=== PATIENT | male | born 1975 | race Caucasian/White ===

== ENCOUNTER 2018-09-22 18:56 | Emergency (ER) | payer BC ==
--- NOTE | 2018-09-22 20:25 | EDM.PDOCBH ---
ED HPI GENERAL MEDICAL PROBLEM - General Chief Complaint: Behavioral/Psych Stated Complaint: ANXIETY ATTACK Time Seen by Provider: 09/22/18 19:10 Source of Information: Reports: Patient History Limitations: Reports: No Limitations - History of Present Illness INITIAL COMMENTS - FREE TEXT/NARRATIVE: 43 y.o.w.m with a H/O anxiety, an employee at [employer] walked to the ed because of severe anxiety. Pt stated, he is so anxious and can not cont working. The main issue is his sister, who lives with him. His sister sent him all day texts with "nasty messages" which made him anxious angary and nervous. His sister wants more money from him, which he refused to give her, after which his sister sent him more messages, which made him more upset. Pt denies any physical issues, no N/V/D, no dizziness or any other acute medical issues. Pt has Ativan 1 mg tablets at home. BP 141/101 Pulse 107 Temp 37.4 RR 21 Pulse ox 100% on RA. Onset Date: 09/22/18 Onset Time: 15:00 Duration: Hour(s): Location: Reports: Generalized Severity: Moderate Improves with: Reports: Medication Worsens with: Reports: Other (being with hsi sister. ) Associated Symptoms: Reports: Other (anxiety) - Related Data Allergies Allergy/AdvReac Type Severity Reaction Status Date / Time seasonal Allergy Sneezing Uncoded 09/22/18 19:11 Home Meds: Home Meds LORazepam [Ativan] 1 mg PO DAILY PRN 09/22/18 [History] Loratadine [Claritin] 10 mg PO DAILY 09/22/18 [History] Mirtazapine [Remeron] 15 mg PO BEDTIME 09/22/18 [History] buPROPion HCl [Wellbutrin Xl] 300 mg PO DAILY 09/22/18 [History] Past Medical History Psychiatric History: Reports: Anxiety, Panic Attack - Past Surgical History Musculoskeletal Surgical History: Reports: Shoulder Surgery Social & Family History - Family History Family Medical History: Noncontributory - Tobacco Use Smoking Status *Q: Current Every Day Smoker Years of Tobacco use: 1 Packs/Tins Daily: 0.5 - Caffeine Use Caffeine Use: Reports: Coffee, Soda - Recreational Drug Use Recreational Drug Use: No ED ROS GENERAL - Review of Systems Review Of Systems: See Below Constitutional: Reports: No Symptoms HEENT: Reports: No Symptoms Respiratory: Reports: No Symptoms Cardiovascular: Reports: No Symptoms Endocrine: Reports: No Symptoms GI/Abdominal: Reports: No Symptoms : Reports: No Symptoms Musculoskeletal: Reports: No Symptoms Skin: Reports: No Symptoms Neurological: Reports: No Symptoms Psychiatric: Reports: Anxiety Hematologic/Lymphatic: Reports: No Symptoms Immunologic: Reports: No Symptoms ED EXAM, BEHAVIORAL HEALTH - Physical Exam Exam: See Below Exam Limited By: No Limitations General Appearance: Alert, WD/WN, No Apparent Distress Eye Exam: Bilateral Eye: Normal Inspection Ears: Normal External Exam, Normal Canal Nose: Normal Inspection, Normal Mucosa, No Blood Throat/Mouth: Normal Lips, Normal Voice, No Airway Compromise Head: Atraumatic, Normocephalic Neck: Normal Inspection, Supple, Non-Tender, Full Range of Motion Respiratory/Chest: No Respiratory Distress, Lungs Clear, Normal Breath Sounds, Chest Non-Tender Cardiovascular: Normal Peripheral Pulses, Regular Rate, Rhythm, No Edema, No Gallop, No Murmur, No Rub GI/Abdominal: Normal Bowel Sounds, Soft, Non-Tender, No Organomegaly, No Abnormal Bruit, No Mass (Male) Exam: Deferred Rectal (Males) Exam: Deferred Back Exam: Normal Inspection, Full Range of Motion Extremities: Normal Inspection, Normal Range of Motion, Non-Tender, No Pedal Edema, Normal Capillary Refill Neurological: Alert, Normal Mood/Affect, CN II-XII Intact, Normal Cognition, No Motor/Sensory Deficits, Oriented x 3 Psychiatric: Alert, Depressed Mood, Agitated Skin Exam: Warm, Dry, Intact, Normal color, No rash COURSE, BEHAVIORAL HEALTH COMP - Course Vital Signs: Last Vital Signs Temp 37.4 C 09/22/18 19:10 Pulse 88 09/22/18 20:15 Resp 17 09/22/18 20:15 BP 122/79 09/22/18 20:15 Pulse Ox 96 09/22/18 20:15 43 y.o.w.m with a H/O anxiety, an employee at [employer] walked to the ed because of severe anxiety. Pt stated, he is so anxious and can not cont working. The main issue is his sister, who lives with him. His sister sent him all day texts with "nasty messages" which made him anxious angary and nervous. His sister wants more money from him, which he refused to give her, after which his sister sent him more messages, which made him more upset. Pt denies any physical issues, no N/V/D, no dizziness or any other acute medical issues. Pt has Ativan 1 mg tablets at home. BP 141/101 Pulse 107 Temp 37.4 RR 21 Pulse ox 100% on RA. PE: WNWD W M extremely anxious, which improved some while here in the ed. Imaging/Labs: Not indicated Impression: Anxiety Tx: None in the ed. Reexam: BP was 122/79 on D/C. Pt was doing better. 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 Plan: D/C with instructions. Departure - Departure Time of Disposition: 20:23 Disposition: Home, Self-Care 01 Condition: Good Clinical Impression: Anxiety - Discharge Information Instructions: Panic Attack, Living With Anxiety Referrals: Gerard Layne PA [Primary Care Provider] - Forms: ED Department Discharge, ED Return to Work/School Form Additional Instructions: please cont your meds, take at home 1 mg Ativan (from your own), please f/u with your PMD, come back if your symptoms get worse acutely.
== END 2018-09-22 20:30 | disposition home or self-care (01) ==
LOC: FB.ED 18:56
DX: F41.9 Anxiety disorder, unspecified (principal); F17.210 Nicotine dependence, cigarettes, uncomplicated; Z79.899 Other long term (current) drug therapy
CPT/HCPCS: 99283

== ENCOUNTER 2020-02-16 23:46 | Emergency (ER) | payer BC ==
[2020-02-16] MEDS ORDERED: Ketorolac 60 MG/2 ML SDV IM ONE (23:56)
--- NOTE | 2020-02-17 00:01 | EDM.PDOC ---
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[employer], lives alone, has a cat got home from work, taking a shower, fell getting out of shower, hit R mandible on handle bending it, landed on R wrist R handed not injured his R wrist before has had R shoulder surg x 2, says he is used to not having his RUE available has gotten ketorolac for kidney stones - Related Data Allergies Allergy/AdvReac Type Severity Reaction Status Date / Time seasonal Allergy Sneezing Uncoded 09/22/18 19:11 Home Meds: Home Meds LORazepam [Ativan] 1 mg PO DAILY PRN 09/22/18 [History] Loratadine [Claritin] 10 mg PO DAILY 09/22/18 [History] Mirtazapine [Remeron] 15 mg PO BEDTIME 09/22/18 [History] buPROPion HCL [Wellbutrin Xl] 300 mg PO DAILY 09/22/18 [History] Past Medical History Psychiatric History: Reports: Anxiety, Panic Attack - Past Surgical History Musculoskeletal Surgical History: Reports: Shoulder Surgery Social & Family History - Family History Family Medical History: Noncontributory - Caffeine Use Caffeine Use: Reports: Coffee, Soda ED ROS GENERAL - Review of Systems Review Of Systems: See Below Constitutional: Reports: No Symptoms HEENT: Reports: No Symptoms Respiratory: Reports: No Symptoms Cardiovascular: Reports: No Symptoms Endocrine: Reports: No Symptoms GI/Abdominal: Reports: No Symptoms : Reports: No Symptoms Musculoskeletal: Reports: Other (R wrist pain) Skin: Reports: No Symptoms Neurological: Reports: No Symptoms Psychiatric: Reports: No Symptoms Hematologic/Lymphatic: Reports: No Symptoms Immunologic: Reports: No Symptoms ED EXAM, GENERAL - Physical Exam Exam: See Below Exam Limited By: No Limitations General Appearance: Alert, WD/WN, No Apparent Distress Extremities: Other (R wrist with mild tender at distal radius and interosseous membrane, slight swell, no ecchymosis, carpal bones NT) Course - Orders/Labs/Meds Orders: Active Orders 24 hr Category Date Time Status Wrist Comp Min 3V Rt [CR] Stat Exams 02/16/20 23:56 Ordered Meds: Medications Discontinued Medications Generic Name Dose Route Start Last Admin Trade Name Travis PRN Reason Stop Dose Admin Ketorolac Tromethamine 60 mg 02/16/20 23:56 Toradol IM 02/16/20 23:57 ONETIME ONE - Re-Assessments/Exams Free Text/Narrative Re-Assessment/Exam: 02/17/20 00:56 XR R wrist neg on prelim ED read pt states he is on leave from work at present has soreness in his R thigh and back as well as R mandible from when he fell, says "nothing feels broke" Departure - Departure Time of Disposition: 00:54 Disposition: Home, Self-Care 01 Condition: Good Clinical Impression: Sprain of right wrist - Discharge Information *PRESCRIPTION DRUG MONITORING PROGRAM REVIEWED*: Not Applicable *COPY OF PRESCRIPTION DRUG MONITORING REPORT IN PATIENT DHRUV: Not Applicable Instructions: Wrist Sprain, Adult Referrals: Gerard Layne PA [Primary Care Provider] - Additional Instructions: Use wrist splint for the next 3 days when out of bed, longer if needed. Use ice for 10 minutes 4 times a day. Take ibuprofen 200 mg 4 tabs 3 times a day for 3 days, longer if needed. See your doctor in 5-7 days. - My Orders Last 24 Hours: My Active Orders 02/16/20 23:56 Wrist Comp Min 3V Rt [CR] Stat - Assessment/Plan Last 24 Hours: My Active Orders 02/16/20 23:56 Wrist Comp Min 3V Rt [CR] Stat
== END 2020-02-17 01:32 | disposition home or self-care (01) ==
LOC: FB.ED 23:46
DX: S63.501A Unspecified sprain of right wrist, initial encounter (principal); F41.9 Anxiety disorder, unspecified; Z91.048 Other nonmedicinal substance allergy status; Z79.899 Other long term (current) drug therapy; W19.XXXA Unspecified fall, initial encounter; W22.8XXA Striking against or struck by other objects, initial encounter
CPT/HCPCS: 73110-RT; 96372; 99283-25; J1885